=== PATIENT | male | born 1940 | race Caucasian/White ===

== ENCOUNTER 2018-09-13 05:17 | Inpatient (IN) | payer MEDICARE, MEDICAID ==
[~2018-09-13] VITALS: Ht 167.6 cm; Wt 93.1 kg
[~2018-09-13 05:17] MED LIST: ASPI-1169 PO; GABA600T PO; INSU100V32 SQ; LISI10TA5 PO; METO25TA6 PO; OXYC20TA42 PO; ROSU10TA2 PO
--- NOTE | 2018-09-13 05:32 | NUR ---
KOKI FROM HOME C/O SOB X 2 DAYS. DENIES CP. PT COUGHING. PT TRANSFERED TO BED AND TOLERATED WELL. PT PLACED ON MONITOR WITH VS WNL. PT PLACED IN COMFORTABLE POSITION. AWAITING MD PALOMARES.
[2018-09-13] MEDS ORDERED: ALBUTEROL FS 2.5 MG/3 ML VIAL.NEB ONE (05:49)
[2018-09-13] MEDS ORDERED: IPRATROPIUM NEB FS 0.5 MG/2.5 ML AMPUL.NEB ONE (05:49)
[2018-09-13] MEDS ORDERED: IPRATROPIUM NEB FS 0.5 MG/2.5 ML AMPUL.NEB NEB ONE (06:00)
[2018-09-13] MEDS ORDERED: ALBUTEROL FS 2.5 MG/3 ML VIAL.NEB NEB ONE (06:00)
--- NOTE | 2018-09-13 06:02 | NUR ---
RESPIRATORY AT BEDSIDE GIVING BREATHING TREATMENT.
[2018-09-13] MEDS ORDERED: ASPIRIN 325 MG TABLET ONE (06:30)
[2018-09-13] MEDS ORDERED: methylPREDNISolone SOD SUCC 125 MG/2ML VIAL IV ONE (06:30)
[2018-09-13] MEDS ORDERED: ASPIRIN 325 MG TABLET PO ONE (06:30)
[2018-09-13] MEDS ORDERED: methylPREDNISolone SOD SUCC 125 MG/2ML VIAL ONE (06:31)
[2018-09-13 06:48] LABS: BASOPHILS % (AUTO) 0.3 % (0.0-2.0); EOSINOPHILS % (AUTO) 0.2 % (0.0-6.0); HEMATOCRIT 45 % (39-51); HEMOGLOBIN 15.2 g/dL (13.5-17.5); LYMPHOCYTES % (AUTO) 18.7 % (20.0-44.0); MEAN CORPUSCULAR HGB CONC 34 g/dl (31.0-36.0); MEAN CORPUSCULAR VOLUME 96 fL (80-96); MONOCYTES # (AUTO) 0.7 /CMM (0.1-1.30); MONOCYTES % (AUTO) 13.3 % (2.0-12.0); NEUTROPHILS # (AUTO) 3.5 /CMM (1.8-8.9); NEUTROPHILS % (AUTO) 67.5 % (43.0-81.0); PLATELET COUNT (AUTO) 75 /CMM (150-450); RED BLOOD CELL COUNT(AUTO) 4.66 MIL/uL (4.5-6.0); WHITE BLOOD COUNT (AUTO) 5.2 K/uL (4.3-11.0)
[2018-09-13 06:57] LABS: CALCIUM, SERUM 8.6 mg/dL (8.5-10.1); CARBON DIOXIDE 29 mmol/L (21-32); CHLORIDE 106 mmol/L (98-107); CREATININE 2.1 mg/dL (0.6-1.3); GLUCOSE 88 mg/dL (74-106); POTASSIUM 4.9 mmol/L (3.5-5.1); SODIUM SERUM 142 mmol/L (136-145); UREA NITROGEN, BLOOD 26 mg/dL (7-18)
[2018-09-13 07:10] LABS: ALANINE AMINOTRANSFERASE 46 U/L (12-78); ALBUMIN 3.6 g/dL (3.4-5.0); ALKALINE PHOSPHATASE 77 U/L (46-116); ASPARTATE AMINOTRANSFERASE 30 U/L (15-37); B-TYPE NATRIURETIC PEPTIDE 286 PG/ML (0-125); BILIRUBIN,DIRECT 0.2 mg/dL (0.0-0.2); BILIRUBIN,TOTAL 0.7 mg/dL (0.2-1.0); TOTAL PROTEIN, SERUM 6.9 g/dL (6.4-8.2)
--- NOTE | 2018-09-13 07:19 | NUR ---
ENDORSED REPORT TO ANGY KATHRINE FOR CONTINUITY OF CARE.
--- NOTE | 2018-09-13 07:21 | NUR ---
RECEIVED REPORT FROM KIM MATT, PT IS ASLEEP IN THE BED.
[2018-09-13 07:26] LABS: BAND % (MANUAL) 2 % (0.0-5.0); EOSINOPHILS % (MANUAL) 1 % (0-4); LYMPHOCYTES % (MANUAL) 19 % (16-48); MONOCYTES % (MANUAL) 10 % (0-11.0); NEUTROPHILS % (MANUAL) 68 (42-76)
--- NOTE | 2018-09-13 07:58 | NUR ---
[facility] PAGED
--- NOTE | 2018-09-13 08:50 | NUR ---
[facility] BED 313-1 VIPUL
--- NOTE | 2018-09-13 09:00 | NUR ---
REPORT GIVEN TO KIM FENTON FOR PRAMOD.
[2018-09-13 09:25] VITALS: BP 120/76
--- NOTE | 2018-09-13 09:30 | NUR ---
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 TELE MONITOR ON SR-65. PATIENT ON O2-2LNC, WAS COMPLAINING OF PAIN WHEN COUGHED, HARD TO BREATH, UPPER CHEST CONGESTION, NONLABORED. PATIENT HAS NO ACUTE RESPIRATORY DISTRESS, V/S TAKEN BP120/76, P-64, R-19, O2-2LNC, T-98. SKIN ASSESSMENT DONE, INTACT. BELONGING CHECKED. PATIENT HAS IV ACCESS ON LEFT AC AREA INTACT. PATIENT AMBULATORY SELF CARE, USING BATHROOM. DR HARMON AWARE OF NEW PATIENT AND MEDICATION, CALL LIGHT WITHIN TO REACH, SAFETY PRECAUTION MAINTAINED ALL THE TIME.
[2018-09-13] MEDS ORDERED: IV NS 0.9% 1,000 ML IV PRN (11:21)
[2018-09-13] MEDS ORDERED: ZOLPIDEM TARTRATE 5 MG TABLET PO PRN (11:30)
[2018-09-13] MEDS ORDERED: MAG HYDROX/AL HYDROX/SIMETH 30 ML UDC PO PRN (11:30)
[2018-09-13] MEDS ORDERED: HYDROCODONE/APAP 5/325MG 1 EACH TABLET PO PRN (11:30)
[2018-09-13] MEDS ORDERED: ACETAMINOPHEN 325 MG TABLET PO PRN (11:30)
[2018-09-13] MEDS ORDERED: MAGNESIUM HYDROXIDE 30 ML UDC PO PRN (11:30)
[2018-09-13] MEDS ORDERED: ONDANSETRON HCL/PF 4 MG/2 ML VIAL IVP PRN (11:30)
[2018-09-13] MEDS ORDERED: Z GUARD REMEDY 2 OZ OINT TP PRN (11:30)
[2018-09-13] MEDS ORDERED: *INSULIN REGULAR(HUMULIN R)HUM 100 UNIT/ML VIAL SQ PRN (12:00)
[2018-09-13] MEDS ORDERED: INSULIN REGULAR, HUMAN 100 UNIT/ML 3 ML VIAL SQ PRN (12:00)
[2018-09-13] MEDS ORDERED: DEXTROSE 50%-WATER 50 ML DISP.SYRIN IV PRN (12:00)
[2018-09-13] MEDS ORDERED: oxyCODONE IR immediate release 5 MG PO PRN (12:00)
[2018-09-13] MEDS: BLOOD SUGAR DIAGNOSTIC 1 EACH STRIP VI SCH ×2 (12:15→17:26)
[2018-09-13] MEDS ORDERED: INSULIN GLARGINE, 100 UNIT/ML CARTRIDGE SQ ONE (12:30)
[2018-09-13] MEDS: ALBUTEROL FS 2.5 MG/3 ML VIAL.NEB NEB SCH ×2 (12:30→16:04)
--- NOTE | 2018-09-13 12:30 | NUR ---
RN NOTES BS-245 MG/DL, INFUSING NS AT 75 ML/HE ON LEFT AC AR AREA INTACT, NO INFILTRATION. CALL LIGHT WITHIN TO REACH, MEDICATION WERE ADMINISTERED EFFECTIVE. CALL LIGHT WITHIN TO REACH, CONTINUED MONITORING.
--- NOTE | 2018-09-13 12:32 | NUR ---
RN NOTES ADMINISTERED OXY IR 20 MG PO PRN PER PATIENT REQUEST FOR LOWER BACK PAIN 04/02 PER PATIENT REQUEST, V/S TAKEN BP 120/76, P-64, CONTINUED MONITORING.
[2018-09-13 13:10] LABS: THYROID STIMULATING HORMONE 0.104 uIU/mL (0.358-3.74)
[2018-09-13 13:13] LABS: IRON, SERUM 27 ug/dl (50-175); TOTAL IRON BINDING CAPACITY 283 ug/dl (250-450)
[2018-09-13] MEDS: methylPREDNISolone SOD SUCC 40 MG/ML VIAL IV SCH ×2 (14:10→17:00)
[2018-09-13] MEDS: INS LISP PROT/INS LISPRO 75/25 100 UNIT/ML VIAL SQ SCH ×2 (14:16→17:26)
[2018-09-13 16:00] VITALS: BP 147/72
[2018-09-13] MEDS ORDERED: GABAPENTIN 300 MG CAPSULE PO SCH (17:00)
[2018-09-13] MEDS ORDERED: METOPROLOL TARTRATE 25 MG TABLET PO SCH (17:00)
--- NOTE | 2018-09-13 17:30 | NUR ---
RN NOTES BS-375 MG/DL, COVERAGE GIVEN, PATIENT SELECTIVE WITH MEDICATION, GET BREATHING TREATMENT BY RT. V/S STABLE, PATIENT EATING DINNER. PER PATIENT WANTED TO AMA HOME. CHARGE NURSE NOTIFIED, CALL LIGHT WITHIN TO REACH, SAFETY PRECAUTION MAINTAINED ALL THE TIME.
[2018-09-13 17:33] VITALS: BP 147/72
--- NOTE | 2018-09-13 18:10 | NUR ---
DISCHARGE NOTES PATIENT SIGN AMA. I HAVE PERSONALLY EXPLAINED TO THE PATIENT RISK AND CONSEQUENCES TO LEAVING HOSPITAL. PATIENT STILL REFUSED ANS SIGN AMA. Dr HARMON AWARE OF. PATIENT STABLE, REFUSED PAIN, NO SOB AT THIS TIME. BELONGING WITH THE PATIENT. ESCORTED PATIENT TO THE LOBBY FOR SAFETY.
[2018-09-14] MEDS ORDERED: LISINOPRIL (10MG) 10 MG TABLET PO SCH (09:00)
[2018-09-14] MEDS ORDERED: ASPIRIN 81 MG TAB.CHEW PO SCH (09:00)
[2018-09-14] MEDS ORDERED: ATORVASTATIN 10 MG TABLET PO SCH (09:00)
== END 2018-09-13 18:10 | disposition left against medical advice (07) | DRG 190 ==
LOC: ER 05:18 → TELE 08:57
PROVIDERS: ADMIT Internal Medicine; ATTEND Internal Medicine
DX: J44.1 Chronic obstructive pulmonary disease with (acute) exacerbation (principal); N17.0 Acute kidney failure with tubular necrosis; E11.22 Type 2 diabetes mellitus with diabetic chronic kidney disease; E11.40 Type 2 diabetes mellitus with diabetic neuropathy, unspecified; I12.9 Hypertensive chronic kidney disease with stage 1 through stage 4 chronic kidney disease, or unspecified chronic kidney disease; E78.5 Hyperlipidemia, unspecified; N18.9 Chronic kidney disease, unspecified; Z95.1 Presence of aortocoronary bypass graft; Z87.891 Personal history of nicotine dependence; Z85.46 Personal history of malignant neoplasm of prostate; Z79.82 Long term (current) use of aspirin; Z79.4 Long term (current) use of insulin; Z79.899 Other long term (current) drug therapy; I25.10 Atherosclerotic heart disease of native coronary artery without angina pectoris
CPT/HCPCS: 36415; 71045-TC; 80048-TC; 80076-TC; 82962-TC; 83540-TC; 83880; 84443-TC; 84484-TC; 85025-TC; 85652-TC; 85730-TC; 87040-TC; 87081-TC; G0378; J1815; J2920; J2930; J7030